=== PATIENT | female | born 1975 | race African-American/Black ===

== ENCOUNTER → 2020-01-05 | Outpatient (CLI) | payer OTHER | LOC: LAB 09:09 | PROVIDERS: ATTEND Hospitalist | DX: R43.0 Anosmia (principal); R43.2 Parageusia; Z20.828 Contact with and (suspected) exposure to other viral communicable diseases ==

== ENCOUNTER → 2020-03-19 | Outpatient (CLI) | payer OTHER | LOC: LAB 14:05 | PROVIDERS: ATTEND Family Medicine | DX: Z20.828 Contact with and (suspected) exposure to other viral communicable diseases (principal) ==